=== PATIENT | female | born 2000 | race African-American/Black ===

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

== ENCOUNTER 2023-11-16 09:59 | Emergency (ER) | payer SELFPAY ==
[2023-11-16] MEDS: IBUPROFEN 400 MG TAB PO STA (10:19)
--- NOTE | 2023-11-16 10:35 | ED ---
URI HPI - General Chief Complaint: Upper Respiratory Infection Stated Complaint: Sore Throat Time Seen by Provider: 11/16/23 10:07 Source: patient, RN notes reviewed Mode of arrival: ambulatory Limitations: no limitations - History of Present Illness Initial Comments: 23-year-old female presenting to the ER with a chief complaint of cough and headache. Patient reports for the past 3 days she has been having a cough with green mucus, headache and runny nose. She also reports a mild sore throat. She denies any difficulty breathing or wheezing. No significant past medical history. She has tried [id number] Robitussin without relief. Denies any known fevers. Does report chills and night sweats. No other complaints. - Related Data Allergies Allergy/AdvReac Type Severity Reaction Status Date / Time No Known Allergies Allergy Verified 11/16/23 10:07 Review of Systems ROS Statement: Those systems with pertinent positive or pertinent negative responses have been documented in the HPI. ROS Other: All systems not noted in ROS Statement are negative. Past Medical History Past Medical History: No Reported History History of Any Multi-Drug Resistant Organisms: None Reported Past Surgical History: No Surgical Hx Reported Past Psychological History: No Psychological Hx Reported Smoking Status: Current every day smoker, Vaper Past Alcohol Use History: None Reported Past Drug Use History: Marijuana General Exam Limitations: no limitations General appearance: alert, in no apparent distress ENT exam: Present: normal exam, normal oropharynx, mucous membranes moist, TM's normal bilaterally Neck exam: Present: normal inspection. Absent: tenderness, meningismus, lymphadenopathy Respiratory exam: Present: normal lung sounds bilaterally. Absent: respiratory distress, wheezes, rales, rhonchi, stridor Cardiovascular Exam: Present: regular rate, normal rhythm, normal heart sounds. Absent: systolic murmur, diastolic murmur, rubs, gallop, clicks Extremities exam: Present: normal inspection, full ROM, normal capillary refill. Absent: tenderness, pedal edema, joint swelling, calf tenderness Neurological exam: Present: alert, oriented X3, CN II-XII intact Skin exam: Present: warm, dry, intact, normal color. Absent: rash Course Vital Signs 11/16/23 11/16/23 10:03 11:24 Temperature 98 F 97.9 F Pulse Rate 71 86 Respiratory 20 18 Rate Blood Pressure 97/63 110/75 O2 Sat by Pulse 100 99 Oximetry Medical Decision Making - Medical Decision Making Was pt. sent in by a medical professional or institution ([facility], [facility], urgent care, hospital, or fci...) When possible be specific @ -No Did you speak to anyone other than the patient for history (EMS, parent, family, police, friend...)? What history was obtained from this source @ -No Did you review nursing and triage notes (agree or disagree)? Why? @ -I reviewed and agree with nursing and triage notes Were old charts reviewed (outside hosp., previous admission, EMS record, old EKG, old radiological studies, urgent care reports/EKG's, fci records)? Report findings @ -No old charts were reviewed Differential Diagnosis (chest pain, altered mental status, abdominal pain women, abdominal pain men, vaginal bleeding, weakness, fever, dyspnea, syncope, headache, dizziness, GI bleed, back pain, seizure, CVA, palpatations, mental health, musculoskeletal)? @ -COVID, RSV, influenza, viral sinusitis, pneumonia this list is not meant to be all-inclusive EKG interpreted by me (3pts min.). @ -[None X-rays interpreted by me (1pt min.). @ -CXR interpreted by me negative for acute cardiopulmonary process. CT interpreted by me (1pt min.). @ -None done U/S interpreted by me (1pt. min.). @ -None done What testing was considered but not performed or refused? (CT, X-rays, U/S, labs)? Why? @ -None What meds were considered but not given or refused? Why? @ -None Did you discuss the management of the patient with other professionals (professionals i.e. [facility], [facility], lab, RT, psych nurse, social professionals, web press roll tender, teacher, aoc director combat plans officer, embedded case manager)? Give summary @ -No Was smoking cessation discussed for >3mins.? @ -No Was critical care preformed (if so, how long)? @ -No Were there social determinants of health that impacted care today? How? (Homelessness, low income, unemployed, alcoholism, drug addiction, transportation, low edu. Level, literacy, decrease access to med. care, fpc, rehab)? @ -No Was there de-escalation of care discussed even if they declined (Discuss DNR or withdrawal of care, Hospice)? DNR status @ -No What co-morbidities impacted this encounter? (DM, HTN, Smoking, COPD, CAD, Cancer, CVA, ARF, Chemo, Hep., AIDS, mental health diagnosis, sleep apnea, morbid obesity)? @ -None Was patient admitted / discharged? Hospital course, mention meds given and route, prescriptions, significant lab abnormalities, going to OR and other pertinent info. @ -Discharge. 23-year-old female presenting to the ER with a chief complaint of cough. History and physical exam completed. Vitals within normal limits. Patient in no signs of acute distress and nontoxic-appearing. Exam unremarkable. Chest x-ray interpreted by me negative for acute cardiopulmonary process. COVID-positive. Flu and RSV negative. Patient received by mouth ibuprofen for symptom control in the ER. Upon reevaluation, patient resting comfortably in exam room no signs of acute distress. Results discussed with patient, all questions answered. Conservative treatment options discussed. Advise close follow-up with PCP. Strict return parameters discussed. Patient discharged stable condition. Patient verbally expressed understanding agree with care plan. Case discussed with the attending, Dr. Phillips. Undiagnosed new problem with uncertain prognosis? @ -No Drug Therapy requiring intensive monitoring for toxicity (Heparin, Nitro, Insulin, Cardizem)? @ -No Were any procedures done? @ -No Diagnosis/symptom? @ -Viral illness/COVID/viral sinusitis Acute, or Chronic, or Acute on Chronic? @ -Acute Uncomplicated (without systemic symptoms) or Complicated (systemic symptoms)? @ -Uncomplicated Side effects of treatment? @ -No Exacerbation, Progression, or Severe Exacerbation? @ -No Poses a threat to life or bodily function? How? (Chest pain, [place], [place], pneumonia, PE, COPD, DKA, ARF, appy, cholecystitis, CVA, Diverticulitis, Homicidal, Suicidal, threat to staff... and all critical care pts) @ -No - Lab Data Lab Results 11/16/23 Range/Units 10:21 Influenza Type A (PCR) Not Detected (Not Detectd) Influenza Type B (PCR) Not Detected (Not Detectd) RSV (PCR) Not Detected (Not Detectd) SARS-CoV-2 (PCR) Detected A (Not Detectd) - Radiology Data Radiology results: report reviewed, image reviewed Disposition Clinical Impression: Acute viral sinusitis, COVID-19, Viral illness Disposition: HOME SELF-CARE Condition: Stable Instructions (If sedation given, give patient instructions): Fever in Adults (ED), COVID-19 (Coronavirus Disease 2019) (ED) Additional Instructions: You may take [id number] Tylenol and ibuprofen for fever and symptom control every 4-6 hours. I recommend plenty of rest and drinking plenty of fluids. Follow-up with PCP. Return to the ER for any new or worse concerns. Is patient prescribed a controlled substance at d/c from ED?: No Referrals: None,Stated [Primary Care Provider] - 1-2 days Forms: Area PCPs Time of Disposition: 11:37
--- NOTE | 2023-11-16 10:43 | XR ---
EXAMINATION TYPE: XR chest 2V DATE OF EXAM: 11/16/2023 10:37 AM COMPARISON: None TECHNIQUE: XR chest 2V Frontal and lateral views of the chest. CLINICAL INDICATION:Female, 23 years old with history of cough; FINDINGS: Lungs/Pleura: There is no evidence of pleural effusion, focal consolidation, or pneumothorax. Pulmonary vascularity: Unremarkable. Heart/mediastinum: Cardiomediastinal silhouette is unremarkable. Musculoskeletal: No acute osseous pathology. IMPRESSION: No acute cardiopulmonary disease/process.
[2023-11-16 11:27] VITALS: BP 110/75; PULSE 86; RESP 18; TEMP 97.9
== END 2023-11-16 11:42 | disposition home or self-care (01) ==
LOC: EC 09:59
CPT/HCPCS: 71046; 87636; 99283

== ENCOUNTER 2024-01-01 09:53 | Emergency (ER) | payer SELFPAY ==
[2024-01-01 09:58] VITALS: RESP 18
[2024-01-01] MEDS: SODIUM CHLORIDE 0.9% 1,000 ML IV STA (10:45)
[2024-01-01] MEDS: KETOROLAC 15 MG/ML 1 ML VIAL IVP STA (10:45)
[2024-01-01] MEDS: ONDANSETRON 4 MG/2 ML VIAL IVP STA (10:46)
[2024-01-01 10:54] LABS: Basophils % (A) 0 %; Eosinophils # (A) 0.1 k/uL (0-0.7); Eosinophils % (A) 1 %; HCT 38.2 % (34.0-46.0); HGB 11.9 gm/dL (11.4-16.0); Lymphocytes # (A) 0.7 k/uL (1.0-4.8); Lymphocytes % (A) 9 %; MCH 27.5 pg (25.0-35.0); MCHC 31.2 g/dL (31.0-37.0); MCV 88.1 fL (80.0-100.0); Mean Platelet Volume 7.3; Monocytes # (A) 0.2 k/uL (0-1.0); Monocytes % (A) 2 %; Neutrophils # (A) 6.5 k/uL (1.3-7.7); Neutrophils % (A) 86 %; Platelet Count 299 k/uL (150-450); RBC 4.33 m/uL (3.80-5.40); WBC 7.6 k/uL (3.8-10.6)
[2024-01-01 11:05] LABS: Partial Thromboplastin Time 26.8 sec (22.0-30.0); Prothrombin Time 11.3 sec (10.0-12.5)
[2024-01-01 11:12] LABS: ALT 11 U/L (4-34); AST 20 U/L (14-36); African American GFR (CKD) >90 (>60 ml/min/1.73 sqM); Alkaline Phosphatase 79 U/L (38-126); Anion Gap 1 mmol/L; Blood Urea Nitrogen 9 mg/dL (7-17); Calcium 9.2 mg/dL (8.4-10.2); Carbon Dioxide 25 mmol/L (22-30); Chloride 110 mmol/L (98-107); Glucose 97 mg/dL (74-99); Non-African American GFR(CKD) >90 (>60 ml/min/1.73 sqM); Potassium 4.8 mmol/L (3.5-5.1); Sodium 136 mmol/L (137-145); Total Bilirubin 0.7 mg/dL (0.2-1.3); Total Protein 6.8 g/dL (6.3-8.2)
--- NOTE | 2024-01-01 11:18 | ED ---
Abdominal Pain HPI - General Chief Complaint: Abdominal Pain Stated Complaint: Vaginal Bleeding/Cramps Time Seen by Provider: 01/01/24 11:15 Source: patient, family (Mother), RN notes reviewed Mode of arrival: ambulatory Limitations: no limitations - History of Present Illness Initial Comments: 23-year-old female presenting to the ER with a chief complaint of abdominal pain. Patient states she is currently on her menstrual cycle that started on 12-29-2023. She states she has been experiencing intense 10 out of 10 abdominal cramping with radiation to her lower back. She also reports heavy bleeding stating she changes her pad or tampon every hour and a half. She states this is typical for her menstrual cycles. She has tried rzxy-rvu-bqrmvur Advil, ibuprofen, Tylenol with no relief of pain. She also is using a heating pad. Patient states today she woke up feeling unwell due to the pain. She does endorse nausea and 2 episodes of vomiting this morning due to the pain. She reports lightheadedness as if she is going to pass out as well. Mother, at bedside, is concerned patient may be anemic. Patient denies any history of uterine fibroids, ovarian cysts or endometriosis. Patient denies any fevers, chills, chest pain, shortness of breath, dysuria/other urinary complaints or peripheral edema. - Related Data Previous Rx's Medication Instructions Recorded Ketorolac [Toradol] 10 mg PO Q8HR #15 tab 01/01/24 Allergies Allergy/AdvReac Type Severity Reaction Status Date / Time No Known Allergies Allergy Verified 01/01/24 09:58 Review of Systems ROS Statement: Those systems with pertinent positive or pertinent negative responses have been documented in the HPI. ROS Other: All systems not noted in ROS Statement are negative. Past Medical History Past Medical History: No Reported History History of Any Multi-Drug Resistant Organisms: None Reported Past Surgical History: No Surgical Hx Reported Past Psychological History: No Psychological Hx Reported Smoking Status: Vaper Past Alcohol Use History: Occasional Past Drug Use History: Marijuana General Exam Limitations: no limitations General appearance: alert, in no apparent distress Respiratory exam: Present: normal lung sounds bilaterally. Absent: respiratory distress, wheezes, rales, rhonchi, stridor Cardiovascular Exam: Present: regular rate, normal rhythm, normal heart sounds. Absent: systolic murmur, diastolic murmur, rubs, gallop, clicks GI/Abdominal exam: Present: soft, tenderness (Lower abdomen), normal bowel sounds Neurological exam: Present: alert, oriented X3, CN II-XII intact Skin exam: Present: warm, dry, intact, normal color. Absent: rash Course Vital Signs 01/01/24 01/01/24 09:54 13:34 Temperature 98.3 F 97.9 F Pulse Rate 68 70 Respiratory 18 18 Rate Blood Pressure 106/72 100/64 O2 Sat by Pulse 100 99 Oximetry Medical Decision Making - Medical Decision Making Was pt. sent in by a medical professional or institution (, PA, HADOOP ANALYST, urgent care, hospital, or fci...) When possible be specific @ -No Did you speak to anyone other than the patient for history (EMS, parent, family, police, friend...)? What history was obtained from this source @ -Patient's mother aiding in HPI and past medical history Did you review nursing and triage notes (agree or disagree)? Why? @ -I reviewed and agree with nursing and triage notes Were old charts reviewed (outside hosp., previous admission, EMS record, old EKG, old radiological studies, urgent care reports/EKG's, fci records)? Report findings @ -No old charts were reviewed Differential Diagnosis (chest pain, altered mental status, abdominal pain women, abdominal pain men, vaginal bleeding, weakness, fever, dyspnea, syncope, headache, dizziness, GI bleed, back pain, seizure, CVA, palpatations, mental health, musculoskeletal)? @ -Differential Abdominal Pain Women: Appendicitis, Cholecystitis, diverticulosis, ischemic bowel, pancreatitis, hepatitis, UTI, gastroenteritis, AAA, incarcerated hernia, bowel obstruction, constipation, inflammatory bowel, hepatitis, peptic ulcer disease, splenic infarction, perforated viscus, vulvitis, ovarian torsion, PID, kidney stone, placenta abruption, this is not meant to be an all-inclusive list EKG interpreted by me (3pts min.). @ -None done X-rays interpreted by me (1pt min.). @ -None done CT interpreted by me (1pt min.). @ -None done U/S interpreted by me (1pt. min.). @ -Pelvic ultrasound showing a 3 mm endometrial stripe. 9mm follicle or functional cyst on left ovary. Trace cul-de-sac fluid. What testing was considered but not performed or refused? (CT, X-rays, U/S, labs)? Why? @ -Patient refused urine analysis What meds were considered but not given or refused? Why? @ -None Did you discuss the management of the patient with other professionals (professionals i.e. , PA, HADOOP ANALYST, lab, RT, psych nurse, social media job titles, lay out drafter, teacher, alumni relations officer, director of casework department)? Give summary @ -No Was smoking cessation discussed for >3mins.? @ -No Was critical care preformed (if so, how long)? @ -No Were there social determinants of health that impacted care today? How? (Homelessness, low income, unemployed, alcoholism, drug addiction, transportation, low edu. Level, literacy, decrease access to med. care, alf, rehab)? @ -No Was there de-escalation of care discussed even if they declined (Discuss DNR or withdrawal of care, Hospice)? DNR status @ -No What co-morbidities impacted this encounter? (DM, HTN, Smoking, COPD, CAD, Cancer, CVA, ARF, Chemo, Hep., AIDS, mental health diagnosis, sleep apnea, morbid obesity)? @ -None Was patient admitted / discharged? Hospital course, mention meds given and route, prescriptions, significant lab abnormalities, going to OR and other pertinent info. @ -Discharge. 23-year-old female presenting to the ER with a chief complaint of abdominal pain during menstrual cycle. History and physical exam completed. Vitals stable. Patient appears well-developed and well-nourished. Patient in no signs of acute distress but is anxious on exam. Exam remarkable for lower abdominal pain. Normal bowel sounds with no rebound or guarding. Due to patient reporting heavy vaginal bleeding laboratory studies and ultrasound will be obtained. Laboratory studies remarkable for a stable hemoglobin of 11.9. Coagulation studies normal. CMP unremarkable. Serum hCG undetectable. Patient refused UA. Pelvic ultrasound with no source of dysmenorrhea. Patient received IV Toradol with great improvement of pain, upon reevaluation. Patient will be discharged with Toradol advised patient to follow-up with [facility] for further evaluation of dysmenorrhea. Patient is agreeable. Patient stable for discharge at this time. Strict return parameters discussed. Patient discharged in stable condition with follow-up to [facility]. Patient verbally expressed understanding and agreement with care plan. Case discussed with ED attending, Dr. Daniel. Undiagnosed new problem with uncertain prognosis? @ -No Drug Therapy requiring intensive monitoring for toxicity (Heparin, Nitro, Insulin, Cardizem)? @ -No Were any procedures done? @ -No Diagnosis/symptom? @ -Dysmenorrhea Acute, or Chronic, or Acute on Chronic? @ -Acute Uncomplicated (without systemic symptoms) or Complicated (systemic symptoms)? @ -Uncomplicated Side effects of treatment? @ -No Exacerbation, Progression, or Severe Exacerbation? @ -No Poses a threat to life or bodily function? How? (Chest pain, [place], [place], pneumonia, PE, COPD, DKA, ARF, appy, cholecystitis, CVA, Diverticulitis, Homicidal, Suicidal, threat to staff... and all critical care pts) @ -No - Lab Data Result diagrams: 01/01/24 10:43 01/01/24 10:43 Lab Results 01/01/24 01/01/24 01/01/24 Range/Units 10:43 10:43 10:43 WBC 7.6 (3.8-10.6) k/uL RBC 4.33 (3.80-5.40) m/uL Hgb 11.9 (11.4-16.0) gm/dL Hct 38.2 (34.0-46.0) % MCV 88.1 (80.0-100.0) fL MCH 27.5 (25.0-35.0) pg MCHC 31.2 (31.0-37.0) g/dL RDW 13.0 (11.5-15.5) % Plt Count 299 (150-450) k/uL MPV 7.3 Neutrophils % 86 % Lymphocytes % 9 % Monocytes % 2 % Eosinophils % 1 % Basophils % 0 % Neutrophils # 6.5 (1.3-7.7) k/uL Lymphocytes # 0.7 L (1.0-4.8) k/uL Monocytes # 0.2 (0-1.0) k/uL Eosinophils # 0.1 (0-0.7) k/uL Basophils # 0.0 (0-0.2) k/uL PT 11.3 (10.0-12.5) sec INR 1.0 (<1.2) APTT 26.8 (22.0-30.0) sec Sodium 136 L (137-145) mmol/L Potassium 4.8 (3.5-5.1) mmol/L Chloride 110 H (98-107) mmol/L Carbon Dioxide 25 (22-30) mmol/L Anion Gap 1 mmol/L BUN 9 (7-17) mg/dL Creatinine 0.73 (0.52-1.04) mg/dL Est GFR (CKD-EPI)AfAm >90 (>60 ml/min/1.73 sqM) Est GFR (CKD-EPI)NonAf >90 (>60 ml/min/1.73 sqM) Glucose 97 (74-99) mg/dL Calcium 9.2 (8.4-10.2) mg/dL Total Bilirubin 0.7 (0.2-1.3) mg/dL AST 20 (14-36) U/L ALT 11 (4-34) U/L Alkaline Phosphatase 79 (38-126) U/L Total Protein 6.8 (6.3-8.2) g/dL Albumin 4.0 (3.5-5.0) g/dL HCG, Quant <2.4 mIU/mL - Radiology Data Radiology results: report reviewed, image reviewed Disposition Clinical Impression: Dysmenorrhea Disposition: HOME SELF-CARE Condition: Stable Instructions (If sedation given, give patient instructions): Dysmenorrhea (ED), Iron Rich Diet (ED) Additional Instructions: You may take Toradol every 8 hours for pain control. Follow-up with PCP. I also highly recommend you follow-up with the [facility] for further evaluation of dysmenorrhea. Return to the ER for new or worsening concerns. Prescriptions: Ketorolac [Toradol] 10 mg PO Q8HR #15 tab Is patient prescribed a controlled substance at d/c from ED?: No Referrals: None,Stated [Primary Care Provider] - 1-2 days Alpesh Dey MD [STAFF PHYSICIAN] - 1-2 days Time of Disposition: 13:18
[2024-01-01 11:28] LABS: HCG,Quantitative Serum <2.4 mIU/mL
--- NOTE | 2024-01-01 11:51 | US ---
EXAMINATION TYPE: US pelvic complete DATE OF EXAM: 01/01/2024 COMPARISON: NONE CLINICAL INDICATION: Female, 23 years old with history of heavy menstrual cycle abd cramping. TECHNIQUE: Transabdominal (TA). FINDINGS: Date of LMP: 3 days ago; on cycle EXAM MEASUREMENTS: Uterus: 6.1 x 2.8 x 3.8 cm Endometrial Stripe: 0.32 cm Right Ovary: 1.7 x 1.7 x 1.8 cm Left Ovary: 2.0 x 2.2 x 1.9 cm 1. Uterus: Anteverted wnl 2. Endometrium: wnl 3. Right Ovary: wnl 4. Left Ovary: wnl with a 9 mm dominant follicle or functional cyst. 5. Bilateral Adnexa: wnl 6. Posterior cul-de-sac: Trace amount of free fluid noted IMPRESSION: 1. Thin, 3 mm endometrial stripe. 2. A 9 mm dominant follicle or functional cyst of the left ovary. 3. Trace cul-de-sac free fluid likely physiologic. [facility], , 01/01/2024 11:49 AM
[2024-01-01 13:36] VITALS: BP 100/64; PULSE 70; TEMP 97.9
== END 2024-01-01 13:37 | disposition home or self-care (01) ==
LOC: EC 09:53
CPT/HCPCS: 36415; 76856; 80053; 84702; 85025; 85610; 85730; 96361; 96374; 96375; 99284

== ENCOUNTER 2024-07-02 15:15 | Inpatient (IN) | payer OTHER, MEDICAID ==
--- NOTE | 2024-07-02 16:12 | ED ---
Psych HPI - General Chief Complaint: Psychiatric Symptoms Stated Complaint: Mental Health Eval. Time Seen by Provider: 07/02/24 15:32 Source: patient, RN notes reviewed Mode of arrival: ambulatory - History of Present Illness Initial Comments: This is a 23-year-old female presents emergency department for generalized depression, suicidal ideation. States that she, "does not want to be here anymore". Denies previous suicidal attempts. Denies homicidal ideation, auditory visual hallucinations. Denies current medication use. - Related Data Previous Rx's Medication Instructions Recorded Ketorolac [Toradol] 10 mg PO Q8HR #15 tab 01/01/24 Allergies Allergy/AdvReac Type Severity Reaction Status Date / Time No Known Allergies Allergy Verified 07/02/24 16:08 Review of Systems ROS Statement: Those systems with pertinent positive or pertinent negative responses have been documented in the HPI. ROS Other: All systems not noted in ROS Statement are negative. Past Medical History Past Medical History: No Reported History History of Any Multi-Drug Resistant Organisms: None Reported Past Surgical History: No Surgical Hx Reported Past Psychological History: No Psychological Hx Reported Smoking Status: Current every day smoker, Vaper Past Alcohol Use History: Daily Past Drug Use History: Marijuana, Methamphetamine General Exam - General Exam Comments Initial Comments: Visual Physical Exam Vital signs reviewed General: Well-appearing, nontoxic, no acute distress. Head: Normocephalic, atraumatic Eyes: PERRLA, EOMI ENT: Airway patent Chest: Nonlabored breathing Skin: No visual rash, normal skin tone Neuro: Alert and oriented 3 Musculoskeletal: No gross abnormalities Limitations: no limitations General appearance: alert, in no apparent distress Neck exam: Present: normal inspection. Absent: tenderness, meningismus, lymphadenopathy Respiratory exam: Present: normal lung sounds bilaterally. Absent: respiratory distress, wheezes, rales, rhonchi, stridor Cardiovascular Exam: Present: regular rate, normal rhythm, normal heart sounds. Absent: systolic murmur, diastolic murmur, rubs, gallop, clicks GI/Abdominal exam: Present: soft, normal bowel sounds. Absent: distended, tenderness, guarding, rebound, rigid Extremities exam: Present: normal inspection, full ROM, normal capillary refill. Absent: tenderness, pedal edema, joint swelling, calf tenderness Psychiatric exam: Present: depressed, flat affect, suicidal ideation Course Vital Signs 07/02/24 07/02/24 16:02 18:33 Temperature 97.7 F Pulse Rate 86 Respiratory 18 16 Rate Blood Pressure 115/73 O2 Sat by Pulse 95 Oximetry Medical Decision Making - Medical Decision Making Was pt. sent in by a medical professional or institution (, PA, SPOOL SORTER, urgent care, hospital, or shelter...) When possible be specific @ -No Did you speak to anyone other than the patient for history (EMS, parent, family, police, friend...)? What history was obtained from this source @ -No Did you review nursing and triage notes (agree or disagree)? Why? @ -I reviewed and agree with nursing and triage notes Were old charts reviewed (outside hosp., previous admission, EMS record, old EKG, old radiological studies, urgent care reports/EKG's, shelter records)? Report findings @ -No old charts were reviewed Differential Diagnosis (chest pain, altered mental status, abdominal pain women, abdominal pain men, vaginal bleeding, weakness, fever, dyspnea, syncope, headache, dizziness, GI bleed, back pain, seizure, CVA, palpatations, mental health, musculoskeletal)? @ -Differential Mental Health Depression, anxiety, bipolar, psychosis, schizophrenia, borderline personality, situational depression, adjustment disorder, behavioral disorder, brain tumor, malingering, substance abuse, encephalopathy, medication reaction, dementia, hypothyroidism, degenerative neurologic disorder, lupus.... This is not meant to be all-inclusive list EKG interpreted by me (3pts min.). @ -None X-rays interpreted by me (1pt min.). @ -None done CT interpreted by me (1pt min.). @ -None done U/S interpreted by me (1pt. min.). @ -None done What testing was considered but not performed or refused? (CT, X-rays, U/S, labs)? Why? @ -None What meds were considered but not given or refused? Why? @ -None Did you discuss the management of the patient with other professionals (professionals i.e. , BARBARA, SPOOL SORTER, lab, RT, psych nurse, social sciences professor, electric tripper machine operator, teacher, desk officer, senior case manager)? Give summary @ -Spoke with EPS nurse who has recommended the patient be admitted for suicidal ideation and depression. Was smoking cessation discussed for >3mins.? @ -No Was critical care preformed (if so, how long)? @ -No Were there social determinants of health that impacted care today? How? (Homelessness, low income, unemployed, alcoholism, drug addiction, transportation, low edu. Level, literacy, decrease access to med. care, alf, rehab)? @ -No Was there de-escalation of care discussed even if they declined (Discuss DNR or withdrawal of care, Hospice)? DNR status @ -No What co-morbidities impacted this encounter? (DM, HTN, Smoking, COPD, CAD, Cancer, CVA, ARF, Chemo, Hep., AIDS, mental health diagnosis, sleep apnea, morbid obesity)? @ -None Was patient admitted / discharged? Hospital course, mention meds given and route, prescriptions, significant lab abnormalities, going to OR and other pertinent info. @ -Mental health admission. 23-year-old female presenting with suicidal ideatio n depression. Patient is quite tearful on discussion and has been medically cleared. APS is recommended patient be admitted. Undiagnosed new problem with uncertain prognosis? @ -No Drug Therapy requiring intensive monitoring for toxicity (Heparin, Nitro, Insulin, Cardizem)? @ -No Were any procedures done? @ -No Diagnosis/symptom? @ -Anxiety, depression, suicidal ideation Acute, or Chronic, or Acute on Chronic? @ -Acute Uncomplicated (without systemic symptoms) or Complicated (systemic symptoms)? @ -Complicated Side effects of treatment? @ -No Exacerbation, Progression, or Severe Exacerbation? @ -No Poses a threat to life or bodily function? How? (Chest pain, USA, IA, pneumonia, PE, COPD, DKA, ARF, appy, cholecystitis, CVA, Diverticulitis, Homicidal, Suicidal, threat to staff... and all critical care pts) @ -Yes - Lab Data Lab Results 07/02/24 Range/Units 20:25 SARS-CoV-2 (PCR) Not Detected (Not Detectd) Disposition Clinical Impression: Depression, Suicidal ideation Disposition: ADMITTED IP TO THIS [facility] Condition: Serious Referrals: None,Stated [Primary Care Provider] - 1-2 days Decision to Admit Reason: Admit from EC Decision Date: 07/02/24 Decision Time: 22:16
[2024-07-02 22:41] LABS: Amphetamine Screen,Urine Detected (NotDetected); Barbiturate Screen,Urine Not Detected (NotDetected); Benzodiazepines Screen,Urine Detected (NotDetected); Cocaine Screen,Urine Not Detected (NotDetected); Methadone Screen, Urine Not Detected (NotDetected); Opiate Screen,Urine Not Detected (NotDetected); Oxycodone Screen, Urine Not Detected (NotDetected); Phencyclidine Screen,Urine Not Detected (NotDetected); Tricyclic Antidepressant,Urine Not Detected (NotDetected); Urn Cannabinoid Scrn Detected (NotDetected)
[2024-07-02] MEDS ORDERED: MAG HYDROX/AL HYDROX/SIMETH 355 ML BOTTLE PO PRN (22:54)
[2024-07-02] MEDS ORDERED: MAGNESIUM HYDROXIDE 2,400 MG/30 ML CUP PO PRN (22:54)
[2024-07-02] MEDS ORDERED: IBUPROFEN 600 MG TAB PO PRN (22:54)
[2024-07-02] MEDS ORDERED: LORazepam 2 MG/ML INJ IM PRN (22:54)
[2024-07-02] MEDS ORDERED: ACETAMINOPHEN TAB 325 MG TAB PO PRN (22:54)
[2024-07-02] MEDS ORDERED: HALOPERIDOL LACTATE 5 MG/ML 1 ML VIAL IM PRN (22:54)
[2024-07-03] MEDS: haloperidoL 5 MG TAB PO PRN (01:00)
[2024-07-03] MEDS: traZODone HCL 100 MG TAB PO PRN (01:00)
[2024-07-03] MEDS: LORazepam 1 MG TAB PO PRN (01:00)
[2024-07-03 02:37] LABS: Appearance,Urine Turbid (Clear); Bacteria,Urine Rare /hpf; Bilirubin,Urine Negative (Negative); Blood,Urine Negative (Negative); Calcium Oxalate Crystals,Urine Many /hpf; Color,Urine Yellow; Glucose,Urine (UA) Negative (Negative); Ketones,Urine Negative (Negative); Leukocyte Esterase,Urine Trace (Negative); Mucus,Urine Many /hpf; Nitrite,Urine Negative (Negative); PH, Urine 6.5 (5.0-8.0); Protein,Urine 1+ (Negative); Squamous Epithelial Cell,Urine 31 /hpf (0-4); Urobilinogen,Urine <2.0 mg/dL (<2.0); WBC,Urine 3 /hpf (0-5)
[2024-07-03] MEDS: NICOTINE 14MG/24HR PATCH TRANSDERM SCH (09:42)
[2024-07-03 09:50] LABS: Basophils # (A) 0.05 10*3/uL (0.00-0.10); Basophils % (A) 0.9 %; Eosinophils % (A) 1.7 %; HCT 37.3 % (37.2-46.3); HGB 12.2 g/dL (12.0-15.0); Lymphocytes # (A) 2.04 10*3/uL (0.90-5.00); Lymphocytes % (A) 34.9 %; MCH 27.9 pg (27.0-32.0); MCHC 32.7 g/dL (32.0-37.0); MCV 85.2 fL (80.0-97.0); Mean Platelet Volume 9.4 fL (9.5-12.2); Monocytes # (A) 0.33 10*3/uL (0.20-1.00); Monocytes % (A) 5.6 %; Neutrophils % (A) 56.4 %; Platelet Count 346 10*3/uL (140-440); RBC 4.38 10*6/uL (4.10-5.20); RDW 12.2 % (11.5-14.5); WBC 5.85 10*3/uL (4.50-10.00)
[2024-07-03 10:02] LABS: ALT 12 U/L (4-34); AST 16 U/L (14-36); African American GFR (CKD) >90 (>60 ml/min/1.73 sqM); Albumin 3.9 g/dL (3.5-5.0); Alkaline Phosphatase 73 U/L (38-126); Anion Gap 6 mmol/L; Blood Urea Nitrogen 9 mg/dL (7-17); Calcium 9.6 mg/dL (8.4-10.2); Carbon Dioxide 25 mmol/L (22-30); Chloride 107 mmol/L (98-107); Glucose 100 mg/dL (74-99); Non-African American GFR(CKD) >90 (>60 ml/min/1.73 sqM); Potassium 4.4 mmol/L (3.5-5.1); Sodium 138 mmol/L (137-145); Total Bilirubin 0.6 mg/dL (0.2-1.3); Total Protein 6.7 g/dL (6.3-8.2)
--- NOTE | 2024-07-03 12:10 | P.HP ---
Psychiatric H&P - . H&P Date: 07/03/24 History & Physical: Allergies Allergy/AdvReac Type Severity Reaction Status Date / Time No Known Allergies Allergy Verified 07/02/24 16:08 Vital Signs Temp 97.4 F L 07/03/24 09:00 Pulse 99 07/03/24 09:00 Resp 16 07/02/24 23:55 BP 108/73 07/03/24 09:00 Pulse Ox 98 07/03/24 09:00 FiO2 Intake & Output 07/02/24 07/03/24 07/03/24 18:59 06:59 18:59 Weight 49.895 kg 48.9 kg Laboratory Last Values WBC 5.85 10*3/uL (4.50-10.00) 07/03/24 09:36 RBC 4.38 10*6/uL (4.10-5.20) 07/03/24 09:36 Hgb 12.2 g/dL (12.0-15.0) 07/03/24 09:36 Hct 37.3 % (37.2-46.3) 07/03/24 09:36 MCV 85.2 fL (80.0-97.0) 07/03/24 09:36 MCH 27.9 pg (27.0-32.0) 07/03/24 09:36 MCHC 32.7 g/dL (32.0-37.0) 07/03/24 09:36 Plt Count 346 10*3/uL (140-440) 07/03/24 09:36 MPV 9.4 fL (9.5-12.2) L 07/03/24 09:36 Immature Gran % (Auto) 0.5 % 07/03/24 09:36 Neutrophils % 56.4 % 07/03/24 09:36 Lymphocytes % 34.9 % 07/03/24 09:36 Monocytes % 5.6 % 07/03/24 09:36 Eosinophils % 1.7 % 07/03/24 09:36 Basophils % 0.9 % 07/03/24 09:36 Immature Gran # 0.03 10*3/uL (0.00-0.04) 07/03/24 09:36 Neutrophils # 3.30 10*3/uL (1.80-7.70) 07/03/24 09:36 Lymphocytes # 2.04 10*3/uL (0.90-5.00) 07/03/24 09:36 Monocytes # 0.33 10*3/uL (0.20-1.00) 07/03/24 09:36 Eosinophils # 0.10 10*3/uL (0.04-0.35) 07/03/24 09:36 Basophils # 0.05 10*3/uL (0.00-0.10) 07/03/24 09:36 Sodium 138 mmol/L (137-145) 07/03/24 09:36 Potassium 4.4 mmol/L (3.5-5.1) 07/03/24 09:36 Chloride 107 mmol/L (98-107) 07/03/24 09:36 Carbon Dioxide 25 mmol/L (22-30) 07/03/24 09:36 Anion Gap 6 mmol/L 07/03/24 09:36 BUN 9 mg/dL (7-17) 07/03/24 09:36 Creatinine 0.82 mg/dL (0.52-1.04) 07/03/24 09:36 Est GFR (CKD-EPI)AfAm >90 (>60 ml/min/1.73 sqM) 07/03/24 09:36 Est GFR (CKD-EPI)NonAf >90 (>60 ml/min/1.73 sqM) 07/03/24 09:36 Glucose 100 mg/dL (74-99) H 07/03/24 09:36 Calcium 9.6 mg/dL (8.4-10.2) 07/03/24 09:36 Total Bilirubin 0.6 mg/dL (0.2-1.3) 07/03/24 09:36 AST 16 U/L (14-36) 07/03/24 09:36 ALT 12 U/L (4-34) 07/03/24 09:36 Alkaline Phosphatase 73 U/L (38-126) 07/03/24 09:36 Total Protein 6.7 g/dL (6.3-8.2) 07/03/24 09:36 Albumin 3.9 g/dL (3.5-5.0) 07/03/24 09:36 TSH 0.134 mIU/L (0.465-4.680) L 07/03/24 09:36 Urine Color Yellow 07/02/24 22:03 Urine Appearance Turbid (Clear) H 07/02/24 22:03 Urine pH 6.5 (5.0-8.0) 07/02/24 22:03 Ur Specific [place] 1.030 (1.001-1.035) 07/02/24 22:03 Urine Protein 1+ (Negative) H 07/02/24 22:03 Urine Glucose (UA) Negative (Negative) 07/02/24 22:03 Urine Ketones Negative (Negative) 07/02/24 22:03 Urine Blood Negative (Negative) 07/02/24 22:03 Urine Nitrite Negative (Negative) 07/02/24 22:03 Urine Bilirubin Negative (Negative) 07/02/24 22:03 Urine Urobilinogen <2.0 mg/dL (<2.0) 07/02/24 22:03 Ur Leukocyte Esterase Trace (Negative) H 07/02/24 22:03 Urine WBC 3 /hpf (0-5) 07/02/24 22:03 Ur Squamous Epith Cells 31 /hpf (0-4) H 07/02/24 22:03 Calcium Oxalate Crystal Many /hpf (None) H 07/02/24 22:03 Urine Bacteria Rare /hpf (None) H 07/02/24 22:03 Urine Mucus Many /hpf (None) H 07/02/24 22:03 Urine HCG, Qual Not Detected (Not Detectd) 07/02/24 22:03 Urine Opiates Screen Not Detected (NotDetected) 07/02/24 22:03 Ur Oxycodone Screen Not Detected (NotDetected) 07/02/24 22:03 Urine Methadone Screen Not Detected (NotDetected) 07/02/24 22:03 Ur Barbiturates Screen Not Detected (NotDetected) 07/02/24 22:03 U Tricyclic Antidepress Not Detected (NotDetected) 07/02/24 22:03 Ur Phencyclidine Scrn Not Detected (NotDetected) 07/02/24 22:03 Ur Amphetamines Screen Detected (NotDetected) H 07/02/24 22:03 U Methamphetamines Scrn Detected (NotDetected) H 07/02/24 22:03 U Benzodiazepines Scrn Detected (NotDetected) H 07/02/24 22:03 Urine Cocaine Screen Not Detected (NotDetected) 07/02/24 22:03 U Marijuana (THC) Screen Detected (NotDetected) H 07/02/24 22:03 SARS-CoV-2 (PCR) Not Detected (Not Detectd) 07/02/24 20:25 07/03/24 12:03 IDENTIFYING DATA: Patient is a 23-year-old -[place] female, current lives with her mother, came into the hospital for depression suicidal thoughts HPI: Patient presented to the hospital yesterday, was evaluated by EPS social welfare administrator and as per note "pt lying on stretcher in room. pt presents with tearful affect and is at times difficult to understand due to crying. pt was willing to complete beginning half of assessment, but began crying harder and was completely unintelligible after some time. pt states, "I'm sick of being me. I don't know who I am. Who is Yun?! Staying alive just ain't worth it anymore! I'm tired. I'm tired of being here. Mentally I just can't take it anymore." pt reports that she has been struggling with mental health issues for some time, but it has escalated significantly in the past couple days. pt states, "I try to keep it buried, but I'm losing it up here," while motioning towards her head. pt reports SI with plan to burn or drive her car into the water to "drown so no one can see me." pt reports self-harm by burning herself. pt states that she has been burning herself so that "I can feel what everyone else feels when they hurt me." pt denies HI to auto service writer, but states, "I just wanna hurt the people who hurt me." pt denies hallucinations. pt unable to answer further questions after this point, instead putting the blanket over her head, sobbing, and saying, "I just wanna disappear. I shouldn't be here. I just wanna disappear. Please, help me disappear. I don't wanna do this anymore." Box Coverer Hand attempted to see patient today at bedside, patient appeared to be disheveled in appearance, was covering herself fully with the blankets in the bed. Box Coverer Hand attempted several times to engage with patient further conversation however patient did not communicate much with the auto service writer. She confirmed her name and her age. When asked why she came to the hospital she states "girl brought me here I do not know why". She refused to answer any further questions. Her urine drug screen is positive for methamphetamine amphetamine benzodiazepine and THC. Patient signed voluntary PAST PSYCHIATRIC HISTORY: Unable to gather information, patient has had no previous psychiatric admissions. PMH: as per ER note ALLERGIES: as per EMR CHEMICAL DEPENDENCY HISTORY: as per HPI FAMILY PSYCHIATRIC/SUBSTANCE USE HISTORY: Unable to gather SOCIAL HISTORY: Patient currently lives with her mother apparently. Unable to gather further social history. MENTAL STATUS EXAM: General Appearance: Patient appears to be sleeping in bed, unable to fully engage with auto service writer today. Mildly disheveled appearance. Patient appears to have poor hygiene and grooming. Behavior: Patient is uncooperative, evasive Speech: Patient's speech is concrete, minimal Mood/Affect: Unable to assess Suicidality/Homicidality: Unable to assess Perceptions: Unable to assess Though content/process: Lawrence, poverty of content, only answer some question Memory and concentration: Unable to assess Judgment and insight: Poor STRENGTHS/WEAKNESSES: strength is that patient is resilient. Weakness is that patient has poor judgment and is impulsive and currently abusing substances INTELLECT: Average IMPRESSIONS: Depressive disorder unspecified Methamphetamine abuse Cannabis use disorder Possible benzodiazepine abuse PLAN: -Patient is admitted under voluntary status to MHU for stabilization of psychiatric symptoms and safety. Patient has signed adult voluntary form and has not signed medication consent and is placed in patient's chart. -Medications : Cymbalta 30 mg daily for mood/anxiety, Seroquel 25 mg nightly for mood stabilization/insomnia -Ativan and Haldol PRN for agitation/aggression Will offer patient subtance use rehab once she clears psychiatrically - Box Coverer Hand attempted to speak with patient about the medication options however patient did not engage much with auto service writer. Patient did not signed med consent form and was placed in chart. Patient was offered medication information and declined it -Internal Medicine consult to perform medical evaluation and physical. -NRT -nicotine patch -SW on board for discharge planning. Encourage patient to participate in groups to work on coping skills. 07/03/24 12:05
[2024-07-03] MEDS: DULoxetine HCL 30 MG CAPSULE.DR PO SCH (12:18)
[2024-07-03 15:16] LABS: Chol/HDL Ratio 2.82 Ratio; LDL Cholesterol,Calculated 59.9 mg/dL (0.0-131.0)
[2024-07-03] MEDS: QUEtiapine 25 MG TAB PO SCH (22:10)
[2024-07-04] MEDS ORDERED: hydrOXYzine pamoate 25 MG CAP PO PRN (12:03)
--- NOTE | 2024-07-04 12:15 | P.PN ---
Progress Note - Text Progress Note Date: 07/04/24 Interval History: Patient was seen taking part in group earlier, left group early was found in her room. She was agreeable to speak to board writer today in the office. She was very tearful very upset, repeatedly asked to be discharged claims that she misses her mother and claims that "I need to see her". Claims that the phones are never working, she claims that she feels scared being on the unit and she feels that nobody is listening to her. She minimized her drug use, does not believe that s he needs medications. Claims that she has been feeling "up-and-down" with her mood and also very anxious. Claims that she has been having a panic attack. She refused to leave the office repeatedly asking board writer why she is not being discharged. At this time patient denies any suicidal or homical ideations, intent or plan. Patient denies any auditory, visual hallucinations. Patient denies any side effects from the medications and has been compliant with meds. She refused the Seroquel last night Mental Status Exam: General Appearance: [Patient appears to be thin, long hair, stated age is alert, upset, anxious and tearful. She was fairly argumentative] Behavior: [Patient is upset, agitated and argumentative, demanding discharge] Speech: Patient's speech is fluent and nonpressured. Loud at times, irritable Mood/Affect: Mood is "up-and-down", affect is impulsive and agitated Suicidality/Homicidality: Patient denies having any suicidal or homicidal ideation intent or plan. Perceptions: Patient denies any visual hallucinations [and denies any auditory hallucinations] Though content/process: Minimizing her need for hospitalization and treatment, irritable, demanding discharge. Minimizing her drug use Memory and concentration: AOX3, grossly intact for the purposes of this session Judgment and insight: Poor/impulsive IMPRESSIONS: Depressive disorder unspecified Methamphetamine abuse Cannabis use disorder Nicotine dependence PLAN: -Patient is admitted under voluntary status to MHU for stabilization of psychiatric symptoms and safety. Patient has signed adult voluntary form and has not signed medication consent and is placed in patient's chart. -Medications : Increase Cymbalta 60 mg daily for mood/anxiety, will give Seroquel 50 mg dose now, increase scheduled dose for nighttime to 50 mg nightly for mood stabilization/insomnia -Ativan and Haldol PRN for agitation/aggression Will offer patient subtance use rehab once she clears psychiatrically -NRT -nicotine patch -SW on board for discharge planning. Encourage patient to participate in groups to work on coping skills.
[2024-07-04] MEDS: QUEtiapine 50 MG TAB PO STA (12:38)
[2024-07-04] MEDS: QUEtiapine 25 MG TAB PO STA (12:48)
[2024-07-04] MEDS: QUEtiapine 50 MG TAB PO SCH (21:35)
--- NOTE | 2024-07-05 03:24 | P.PN ---
Progress Note - Text Progress Note Date: 07/03/24 patient refused medical evaluation
--- NOTE | 2024-07-05 05:21 | P.MDCNMH ---
History of Present Illness H&P Date: 07/05/24 23 year old female here for psych evaluation due to depression and suicidal ideation , she does not talk and does not answer any of my questions , just nodes with her head yes and no she denies any fever, chills, cough, sore throat, chest pain , trouble breathing , nausea , vomiting, abd pain , changes in urinary or bowel habits. she denies tobacco smoking, she claims that she quit meth 3 months ago , and alcohol 1 year. review of systems limited as above on exam Constitutional: No acute distress, Eyes: Anicteric sclerae, moist conjunctiva, Pupils equal round reactive to light ENMT: NC/AT Oropharynx clear, no erythema, or exudates Lungs: Clear to auscultation Clear to percussion Normal respiratory effort, no accessory muscle use Cardiovascular: Heart regular in rate and rhythm, No murmurs, gallops, or rubs No peripheral edema Abdominal: Soft Nontender, no guarding, rebound or rigidity Abdomen moving with respiration Normoactive bowel sounds Extremities: No digital cyanosis No clubbing Pedal pulses intact and symmetrical Radial pulses intact and symmetrical No calf tenderness Psychiatric: Alert does not speak Neuro Muscles Strength 5/5 in all 4 extremities Sensation to light touch grossly present throughout Cranial nerves II-XII grossly intact Past Medical History Past Medical History: No Reported History History of Any Multi-Drug Resistant Organisms: None Reported Past Surgical History: No Surgical Hx Reported Past Anesthesia/Blood Transfusion Reactions: No Reported Reaction Past Psychological History: Anxiety, Depression, PTSD Smoking Status: Current every day smoker, Vaper Past Alcohol Use History: Daily Past Drug Use History: Marijuana, Methamphetamine - Past Family History Mother History Unknown: Yes Medications and Allergies Home Medications Medication Instructions Recorded Confirmed Type Ketorolac [Toradol] 10 mg PO Q8HR #15 tab 01/01/24 Rx Allergies Allergy/AdvReac Type Severity Reaction Status Date / Time No Known Allergies Allergy Verified 07/02/24 16:08 Physical Exam Vitals: Vital Signs Temp Pulse Resp BP Pulse Ox 07/04/24 21:00 97.6 F 107 H 16 106/71 100 07/04/24 09:00 97.4 F L 63 16 105/68 100 Cranial Nerve Examination - Cranial Nerves Cranial Nerve II- Optic: Intact Cranial Nerve III- Oculomotor: Intact Cranial Nerve IV- Trochlear: Intact Cranial Nerve V- Trigeminal: Intact Cranial Nerve - Abducens: Intact Cranial Nerve VII- Facial: Intact Cranial Nerve VIII- Auditory: Intact Cranial Nerve IX- Glossopharyngeal: Intact Cranial Nerve X- Vagus: Intact Cranial Nerve XI- Accessory: Intact Cranial Nerve XII- Hypoglossal: Intact Results CBC & Chem 7: 07/03/24 09:36 07/03/24 09:36 Assessment and Plan Assessment: depression and suicidal ideation management per psych polysubstance abuse urine drug screen positive for multiple agents counseled to quit drugs of abuse rest of her blood work unremarkable stable from medical stand point thank you for this consultation
[2024-07-05] MEDS: DULoxetine HCL 60 MG CAPSULE.DR PO SCH (08:13)
--- NOTE | 2024-07-05 11:14 | P.PN ---
Progress Note - Text Progress Note Date: 07/05/24 Interval History: Patient was seen taking part in group earlier. She was agreeable to speak to radha fuller today in her room. Patient apologized for what had occurred yesterday claims that she is very upset and missed her mom. She appears to be brighter in her affect today answered all questions appropriately. States that she is feeling more stable with regards to her mood fluctuations, claims that he was that she was able to speak with her mother over the phone. States that the Ativan did help her calm down, we spoke about transitioning off the Ativan and onto Vistaril which she is okay with to try today. Claims that her mood and anxiety have been improving. States that she is not having any side effects or issues with the medications. She was less focused on discharge today. Continues to have superficial insight into her substance use. Claims that she is motivated to get back to work and her family. States that she is trying to go to groups hygiene and grooming improving improving energy level. At this time patient denies any suicidal or homical ideations, intent or plan. Patient denies any auditory, visual hallucinations. Mental Status Exam: General Appearance: Patient appears to be thin, long hair, stated age is alert, more cooperative today with personal lines underwriter. Hygiene and grooming improving. Behavior: Patient is more cooperative today, pleasant. Speech: Patient's speech is fluent and nonpressured. Mood/Affect: Mood is "better", affect is improving, appears to be happier Suicidality/Homicidality: Patient denies having any suicidal or homicidal ideation intent or plan. Perceptions: Patient denies any visual hallucinations and denies any auditory hallucinations Though content/process: Less focused on discharge today, not endorsing paranoia or delusions. More goal oriented. More future oriented Memory and concentration: AOX3, grossly intact for the purposes of this session Judgment and insight: Improving mildly IMPRESSIONS: Depressive disorder unspecified Methamphetamine abuse Cannabis use disorder Nicotine dependence PLAN: -Patient is admitted under voluntary status to MHU for stabilization of psychiatric symptoms and safety. Patient has signed adult voluntary form and has not signed medication consent and is placed in patient's chart. -Medications : Cymbalta 60 mg daily for mood/anxiety, Seroquel 50 mg nightly for mood stabilization/insomnia -Ativan and Haldol PRN for agitation/aggression -NRT -nicotine patch -SW on board for discharge planning. Encourage patient to participate in groups to work on coping skills. she is not interested in rehab at this time, is interested in outpatient NA/AA meetings. Hopeful for discharge tomorrow if patient is improving.
[2024-07-05] MEDS: hydrOXYzine pamoate 25 MG CAP PO PRN (17:28)
[2024-07-06 08:34] VITALS: BP 121/77; PULSE 111; RESP 20; TEMP 98.2
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
== END 2024-07-06 11:08 | disposition home or self-care (01) | DRG 881 ==
LOC: EC 15:15 → 3MHU 22:51
PROVIDERS: ADMIT Psychiatry & Neurology Psychiatry; ATTEND Psychiatry & Neurology Psychiatry
DX: F32.A Depression, unspecified (principal); R45.851 Suicidal ideations; F15.10 Other stimulant abuse, uncomplicated; F12.10 Cannabis abuse, uncomplicated; F41.9 Anxiety disorder, unspecified; F17.290 Nicotine dependence, other tobacco product, uncomplicated; G47.00 Insomnia, unspecified
CPT/HCPCS: 80053; 80061; 80306; 81001; 81025; 82075; 83036; 84439; 84443; 85025; 87635; 99285